=== PATIENT | female | born 1935 | race Caucasian/White ===

== ENCOUNTER 2022-12-20 16:25 | Emergency (ER) | payer OTHER ==
[~2022-12-20] VITALS: Ht 152.4 cm; Wt 55.8 kg
[2022-12-20 16:25] VITALS: BP_SYST 144; PULSE 70; RESP 17; TEMP 97.3; O2SAT 95
[2022-12-20 17:59] LABS: BILIRUBIN,URINE NEGATIVE (NEGATIVE); BLOOD, URINE NEGATIVE (NEGATIVE); CLARITY/URINE CLEAR (CLEAR); COLOR,URINE YELLOW (YELLOW); GLUCOSE,URINE NEGATIVE (NEGATIVE); KETONES,URINE NEGATIVE (NEGATIVE); LEUKOCYTE ESTERASE ,URINE TRACE (NEGATIVE); NITRITE, URINE NEGATIVE (NEGATIVE); PROTEIN URINE NEGATIVE (NEGATIVE); UROBILINOGEN,URINE 0.2 (0.2-1.0)
[2022-12-20 18:13] LABS: RBC,URINE 0-3 /HPF (0-3)
[2022-12-20 18:14] LABS: BACTERIA,URINE FEW /HPF (None Seen); MUCUS,URINE 1+ /LPF (None Seen)
[2022-12-20] MEDS ORDERED: PHEN-726 PO (18:38)
[2022-12-20] MEDS ORDERED: CEPH-548 PO (18:38)
[2022-12-20 19:08] VITALS: BP_SYST 144; PULSE 70; RESP 17; TEMP 97.3; O2SAT 95
== END 2022-12-20 19:10 | disposition home or self-care (01) ==
LOC: SED 16:25
DX: N39.0 Urinary tract infection, site not specified (principal); R30.0 Dysuria; R35.0 Frequency of micturition; E11.9 Type 2 diabetes mellitus without complications; I10 Essential (primary) hypertension; Z85.828 Personal history of other malignant neoplasm of skin; Z79.899 Other long term (current) drug therapy
CPT/HCPCS: 81000; 87086; 99283